=== PATIENT | male | born 1955 | race Caucasian/White ===

== ENCOUNTER 2019-07-07 22:41 | Emergency (ER) | payer SELFPAY ==
--- NOTE | ~2019-07-07 | CT_ITS ---
EXAMINATION: CT brain wo con INDICATION: Right arm hemiparesis. COMPARISON: None TECHNIQUE: Standard unenhanced head CT. The dose-length product (DLP) was 681.00 mGy-cm. The mA was a djusted according to patient size. Iterative reconstruction technique was employed. FINDINGS: There is no intracranial hemorrhage, acute infarction, or abnormal mass lesion. The ventric les are normal. There is no abnormal mass effect or midline shift. The holt-white matter differentiat ion is normal. The basal cisterns are patent. The orbits are normal. There is mild mucosal thickening of the paranasal sinuses. IMPRESSION: 1. No acute intracranial abnormality. Reviewed, dictated and finalized at location A.
--- NOTE | 2019-07-07 22:55 | ECG_ITS ---
Measurements Intervals [place] Rate: 94 P: 36 [place]: 179 QRS: 246 QRSD: 172 T: 51 QT: 425 QTc: 532 Interpretive Statements SINUS RHYTHM RIGHT AXIS DEVIATION RIGHT BUNDLE BRANCH BLOCK BASELINE ARTIFACT- I, II ABNORMAL ECG Electronically Signed On 07-08-2019 9:47:45 CDT by Demetrio Prather D.O.
--- NOTE | 2019-07-07 22:55 | ED.NEUROSD ---
HPI - Neuro Symptoms/Deficit General Chief Complaint: Unspecified Stated Complaint: AMB Time Seen by Provider: 07/07/19 22:55 Source: patient and EMS Mode of arrival: EMS Limitations: no limitations History of Present Illness HPI Narrative: 64-year-old male was in his vehicle when he had sudden onset of numbness all over, shaking with tremors, and sweating. Said he felt weak all over when short of breath. He denied any chest pain. He denied any one-sided body weakness. He is having troubles with his speech which he says is abnormal. He said when this happened he called his girlfriend come get the dog out of car and then called an ambulance. No loss of bowel or bladder function. No trouble with his vision. Onset (ago): minute(s) (35) Timing confirmed by: other (EMS) Location: speech, ataxia, altered and other ( tremors) History of same: No Severity: moderate Quality: numb and constant Relieving factors: none Exacerbating factors: none Context: sudden onset On Anticoagulants: No Associated symptoms: confusion, diaphoresis, nausea/vomiting and shortness of breath Treatments Prior to Arrival: none Related Data Allergies Allergy/AdvReac Type Severity Reaction Status Date / Time No Known Allergies Allergy Verified 07/07/19 23:40 Review of Systems Constitutional: Constitutional: Denies chills, Denies fever(s) and Reports weakness Eyes: Eyes: Denies change in vision and Denies photophobia ENT: Reports system reviewed and no additional complaints, except as documented Cardiovascular: Cardiovascular: Reports as per HPI, Denies chest pain, Reports diaphoresis, Denies rapid heart rate, Denies edema, Denies irregular heart rhythm and Denies dyspnea on exertion Respiratory: Respiratory: Reports as per HPI Gastrointestinal: Gastrointestinal: Reports as per HPI and Reports no additional gastrointestinal complaints Genitourinary: Genitourinary: Reports no additional male genitourinary complaints Neurologic: Reports as per HPI, Denies vertigo, Denies dizziness, Denies syncope and Denies headache(s) Psychiatric: Psychiatric: Reports no additional psychiatric complaints Endocrine: Endocrine: Reports no additional endocrine complaints Hematologic/Lymphatic: Hematologic/Lymphatic: Reports no additional hematologic/lymphatic complaints PMFSH Past Medical History Medical History (Updated 08/04/19 @ 10:42 by Yemi Chandler MD) Herniated cervical disc Hypertension Surgical History Surgical History (Updated 07/07/19 @ 23:40 by Yemi Chandler MD) History of cervical spinal surgery Social History Social History (Updated 07/07/19 @ 23:41 by Yemi Chandler MD) Smoking status: Former smoker Alcohol intake: current Alcohol use details: occasional Substance use: never Gender identity (if verbalized by the patient): Male Exam Const: General: healthy appearing, no acute distress and alert Nutritional Appearance: well nourished and obese centrally obese HENMT: Head: normal to inspection Ears: external ears normal General nose exam: Normal external nose present Face and sinus: normal facial exam Mouth: Yes lip normal and Yes moist mucous membranes Eyes: Conjunctivae: conjunctivae normal Pupils: Equal, round and reactive pupils present EOM: EOMs intact bilaterally Neck: Neck: normal visual inspection and no lymphadenopathy Resp: Effort & Inspection: normal respiratory effort Auscultation: clear to auscultation bilaterally Cardio: Rate: regular rate Rhythm: regular rhythm GI: GI Palp: Yes Soft to palpation and No Tenderness to palpation present (GI) Auscultation: normal bowel sounds Back/Spine/Pelvis: Cervical Spine: cervical ROM normal Thoracic/Lumbar Spine: thoraco-lumbar ROM normal Skin: General skin exam: normal color Rashes: no rashes Neuro: General: patient oriented x3, moves all extremities (But slowly) and Unable to assess gait Cranial nerves: Yes Equal, round and reactive pupils pres
[2019-07-07 23:00] VITALS: PULSE 80
[2019-07-07 23:02] VITALS: BP 105/57; PULSE 88; RESP 24; TEMP 36.6; O2SAT 93
[2019-07-07] MEDS: ASPIRIN 81 MG CHEWABLE TABLET 324 MG PO (23:05)
[2019-07-07 23:13] LABS: Basophils Absolute Auto 0.07 K/mm3 (0.00-0.10); Basophils Percent Auto 0.7 % (0.0-1.0); Eosinophils Percent Auto 3.7 % (1.0-6.0); Hematocrit 40.3 % (40.0-54.0); Hemoglobin 13.3 g/dL (14.0-18.0); Immature Granulocyte Absolute 0.04 K/mm3 (0.00-0.00); Immature Granulocyte Percent A 0.4 % (0.0-0.0); Lymphocytes Absolute Auto 4.89 K/mm3 (1.10-4.50); Lymphocytes Percent Auto 45.7 % (18.0-42.0); Mean Corpuscular Hemoglobin 29.4 pg (27.0-31.0); Mean Corpuscular Volume 89.2 fL (78.0-102.0); Mean Platelet Volume 10.2 fl (8.7-11.0); Monocytes Absolute Auto 0.86 K/mm3 (0.10-0.90); Neutrophils Absolute Auto 4.4 K/mm3 (1.7-7.2); Neutrophils Percent Auto 41.5 % (50.0-70.0); Platelet Count Result 233 K/mm3 (150-420); Red Blood Count 4.52 M/mm3 (4.70-6.10); Red Cell Distribution Width 13.8 % (11.6-14.4); White Blood Count 10.7 K/mm3 (4.8-10.8)
[2019-07-07 23:23] LABS: INR 1.1; Prothrombin Time 10.9 Seconds (9.64-11.0)
[2019-07-07 23:24] VITALS: BP 94/67; PULSE 86; RESP 22
[2019-07-07 23:35] LABS: Alanine Aminotransferase 25 U/L (16-63); Albumin Level 3.7 g/dL (3.4-5.0); Alkaline Phosphatase 81 U/L (46-116); Anion Gap 14.2 mmol/L (7-16); Aspartate Amino Transferase 22 U/L (15-37); Bilirubin,Total 0.3 mg/dL (0.00-1.00); Blood Urea Nitrogen 22 mg/dL (7-18); Calcium 8.6 mg/dL (8.5-10.1); Carbon Dioxide 24 mmol/L (21-32); Chloride 103 mmol/L (98-108); Estimated CRCL calculation 59 ml/min; Estimated Glomerular Filt Rate 46; Glucose 191 mg/dL (70-99); Osmolality Calculated 294 mOsm/kg (285-295); Potassium 3.2 mmol/L (3.5-5.1); Sodium 138 mmol/L (136-145); Total Protein 7.2 g/dL (6.4-8.2)
[2019-07-07 23:36] LABS: CRP < 0.2 mg/dL (0.0-0.9); Ethanol < 3 mg/dL (0-6); Magnesium 1.8 mg/dL (1.8-2.4); Thyroid Stimulating Hormone 92.21 uIU/mL (0.36-3.74); Troponin I < 0.02 ng/mL (0.00-0.056)
[2019-07-08] VITALS: BP 150/40; PULSE 80; RESP 20
[2019-07-08 00:02] LABS: Free T4 Free Thyroxine 0.36 ng/dL (0.76-1.46)
[2019-07-08] MEDS: SODIUM CHLORIDE 0.9% IV 1,000 ML 999 ML IV CONT (00:04)
[2019-07-08 00:17] LABS: Add Urine Microscopic? NO; Appearance Urine Clear (Clear); Bilirubin Urine Negative (Negative); Blood Urine Negative (Negative); Color Urine Yellow (Yellow); Glucose Urine UA Negative (Negative); Ketones Urine Negative (Negative); Leukocyte Esterase Ur Negative LEU/UL (Negative); Nitrate Urine Negative (Negative); Protein Urine Negative (Negative); Specific Grav Ur >= 1.030 (1.010-1.020)
[2019-07-08 00:30] VITALS: BP 120/40; PULSE 78; RESP 20
[2019-07-08 00:51] VITALS: BP 111/40; PULSE 77; RESP 17; O2SAT 98
[2019-07-08 00:53] LABS: Amphetamine Screen Urine Negative (Negative); Barbiturate Screen Urine Negative (Negative); Benzodiazepines Screen Urine Negative (Negative); Cannabinoid Screen Urine Positive (Negative); Cocaine Screen Urine Negative (Negative); Methadone Screen Urine Negative (Negative); Opiate Screen Urine Negative (Negative); Phencyclidine Screen Urine Negative (Negative)
--- NOTE | 2019-07-08 00:54 | PC.NURSE ---
Diana S/O [phone] made aware of plans of transfer
--- NOTE | 2019-07-08 00:56 | PC.NURSE ---
07/07/2019 @2308, Stroke assessment, able to raise arm no drift, took patient long time to follow commands, speech slurred. Confusion comes & goes.
[2019-07-08] MEDS: POTASSIUM BICARBONATE 25 MEQ TABEF PO (01:00)
--- NOTE | 2019-07-08 02:23 | PC.NURSE ---
0100: 16fr cerda coude tip inserted, with water filtration technician. 250 urine returned
[2019-07-08 02:24] VITALS: BP 100/50; PULSE 76; RESP 18; TEMP 36.8; O2SAT 97
== END 2019-07-08 02:10 | disposition short-term general hospital (02) ==
PROVIDERS: Emergency Provider Emergency Medicine
DX: R29.818 Other symptoms and signs involving the nervous system (principal); R94.31 Abnormal electrocardiogram [ECG] [EKG]; E03.9 Hypothyroidism, unspecified
CPT/HCPCS: 36415; 70450; 80053; 80307; 81003; 83735; 84439; 84443; 84484; 85025; 85610; 86140; 93005; 96360; 99285; A9270; J7030